=== PATIENT | female | born 1970 | race Caucasian/White ===

== ENCOUNTER → 2022-07-01 08:47 | Outpatient (CLI) | payer BC, SELFPAY ==
[2022-07-01 12:49] LABS: Hemoglobin 13.8 g/dL (12.0-16.0); Mean Corpuscular HGB Conc 34.5 % (30-36); Mean Corpuscular Hemoglobin 30.6 PG (26-34); Mean Corpuscular Volume 88.7 fL (80-100); Platelet Count 202 X10^3/uL (150-400); Red Blood Cell Count 4.51 X10^6/uL (4.0-5.2); Red Cell Distribution Width 12.4 % (11.6-14.8)
[2022-07-01 13:12] LABS: Hemoglobin A1C% w Est Avg Glu 5.3 % (4.0-6.0)
[2022-07-01 13:27] LABS: Alanine Aminotransferase 16 IU/L (<35); Albumin 4.2 g/dL (3.5-5.0); Albumin Globulin Ratio 1.5 (1.0-2.8); Alkaline Phosphatase 51 U/L (38-126); Aspartate Aminotransferase 19 IU/L (14-36); BUN Creatinine Ratio 15.6 (6-22); Blood Urea Nitrogen 14 mg/dL (7-17); Carbon Dioxide 29 mmol/L (22-32); Chloride 101 mmol/L (98-107); Cholesterol 178 mg/dL (140-199); Estimated Glomerular Filt Rate > 60 mL/min (>60); Globulin 2.8 g/dL (1.7-4.1); Glucose 74 mg/dL (70-100); HDL Cholesterol 61 mg/dL (40-60); HEMOLYSIS < 15 (0-50); LDL Cholesterol Calculated 98 mg/dL (<100); Potassium 4.4 mmol/L (3.4-5.1); Sodium 138 mmol/L (137-145); Triglycerides 93 mg/dL (35-150)
[2022-07-01 13:38] LABS: Free T4, Direct Thyroxine 1.05 ng/dL (0.78-2.19)
[2022-07-01 13:51] LABS: Thyroid Stimulating Hormone 1.47 uIU/mL (0.47-4.68)
[2022-07-01 17:15] LABS: Vitamin D 25 Hydroxy (D3) 84.4 ng/mL (30.0-100.0)
== END ==
PROVIDERS: PCP Family Medicine; Referring Provider Family Medicine; Visit Provider Family Medicine
DX: E55.9 Vitamin D deficiency, unspecified (principal); G89.29 Other chronic pain; M25.561 Pain in right knee; M25.572 Pain in left ankle and joints of left foot; R53.83 Other fatigue; R73.9 Hyperglycemia, unspecified; Z13.220 Encounter for screening for lipoid disorders; Z30.41 Encounter for surveillance of contraceptive pills; Z76.89 Persons encountering health services in other specified circumstances
CPT/HCPCS: 36415; 80053; 80061; 82306; 83036; 84439; 84443; 84481; 85027

== ENCOUNTER → 2022-08-10 11:43 | Outpatient (CLI) | payer BC, SELFPAY ==
--- NOTE | 2022-08-10 11:44 | DI.MRI.S_ITS ---
PROCEDURE: MR KNEE RT WO CON INDICATIONS: right knee pain TECHNIQUE: Noncontrast sagittal PD fast spin echo and T2 fast spin echo with fat saturation, sagittal 3-D FLASH with fat saturation; coronal T1 spin echo and PD fast spin echo with fat saturation, and axial PD fast spin echo with fat saturation through the knee. COMPARISON: None. FINDINGS: Image quality: Excellent. Menisci: The medial meniscus is intact. Complex tear involving anterior horn and body of lateral meniscus is noted extending to both superior and inferior articulating surfaces. The meniscal root ligaments appear intact. Cruciate ligaments: The anterior cruciate ligament is thickened near its femoral insertion. The posterior cruciate ligament is intact. Medial structures: The medial collateral ligament appears mildly thickened. The posterior oblique ligament, semimembranosus tendon insertions, oblique popliteal ligament, and meniscocapsular junction appear intact. Visualized portions of the pes anserinus tendons appear normal. No abnormal bursal fluid. Lateral structures: The lateral collateral ligament, long and short heads of the biceps femoris tendon appear thickened near their distal insertions. The popliteus tendon appears normal; the popliteofibular ligament appears intact. Iliotibial band appears normal. Anterior structures: The quadriceps and patellar tendons appear intact. Patellar alignment is normal. No femoral trochlear dysplasia or ventral trochlear prominence. No edema in the infrapatellar fat pad. Bones and cartilage: No bone marrow contusions or fractures. Mild tricompartmental osteoarthritis and low-grade chondromalacia is seen. Joint space: There is small knee joint fluid. No Borrego's cyst. Normal appearing synovial plicae are incidentally noted. IMPRESSION: 1. Complex tear involving anterior horn and body of lateral meniscus extending to both superior and inferior articulating surfaces. No focal medial meniscal tear. 2. Low-grade ACL sprain near its femoral insertion. No ACL rupture the PCL is intact. 3. Very mild MCL sprain. Low to moderate grade LCL sprain and tendinosis involving distal long and short heads of biceps femora is tendon. 4. Mild tricompartmental osteoarthritis and low-grade chondromalacia. No fracture or dislocation. Small amount of joint fluid, no gross loose bodies. Dictated by: Jorgito Dennis M.D. on 08/10/2022 at 14:54 Approved by: Jorgito Dennsi M.D. on 08/10/2022 at 14:57
== END ==
PROVIDERS: PCP Family Medicine; Referring Provider Family Medicine; Visit Provider Family Medicine
DX: S83.281A Other tear of lateral meniscus, current injury, right knee, initial encounter (principal); S83.511A Sprain of anterior cruciate ligament of right knee, initial encounter; S83.411A Sprain of medial collateral ligament of right knee, initial encounter; S83.421A Sprain of lateral collateral ligament of right knee, initial encounter; M17.11 Unilateral primary osteoarthritis, right knee; M94.261 Chondromalacia, right knee; M25.561 Pain in right knee; G89.29 Other chronic pain
CPT/HCPCS: 73721

== ENCOUNTER → 2022-12-04 12:33 | Outpatient (CLI) | payer BC, SELFPAY ==
--- NOTE | 2022-12-04 12:34 | DI.RAD.S_ITS ---
PROCEDURE: XR FOOT RT MIN 3V INDICATIONS: Base of great toe pain TECHNIQUE: 3 views of the foot were acquired. COMPARISON: None. FINDINGS: Bones: No fractures or dislocations. No suspicious bony lesions. Prominent plantar calcaneal spur. No significant great toe degenerative change. Soft tissues: No tibiotalar joint effusion. Achilles tendon appears normal. IMPRESSION: No evidence acute bony abnormality. Dictated by: Robles Lin M.D. on 12/04/2022 at 18:34 Approved by: Robels Lin M.D. on 12/04/2022 at 18:35
== END ==
PROVIDERS: PCP Family Medicine; Referring Provider Nurse Practitioner Family; Visit Provider Nurse Practitioner Family
DX: M79.671 Pain in right foot (principal)
CPT/HCPCS: 73630

== ENCOUNTER → 2023-02-15 10:53 | Outpatient (CLI) | payer BC, SELFPAY ==
--- NOTE | 2023-02-15 10:58 | DI.RAD.S_ITS ---
PROCEDURE: XR FOOT RT MIN 3V INDICATIONS: METARARSALGIA LEFT/HALLUX RIGHT TECHNIQUE: 3 views of the foot were acquired. COMPARISON: [facility], , XR FOOT RT MIN 3V, 12/04/2022, 12:43. FINDINGS: Bones: No fractures or dislocations. No suspicious bony lesions. Soft tissues: No tibiotalar joint effusion. Achilles tendon appears normal. IMPRESSION: No visualized acute fracture or dislocation. However, if clinical concern and/or pain persist, short interval imaging followup in 7-10 days is recommended, as occult injury cannot be definitively excluded. Dictated by: Estela Brar M.D. on 02/15/2023 at 17:05 Approved by: Estela Brar M.D. on 02/15/2023 at 17:05
--- NOTE | 2023-02-15 10:58 | DI.RAD.S_ITS ---
PROCEDURE: XR FOOT LT MIN 3V INDICATIONS: METARARSALGIA LEFT/HALLUX RIGHT TECHNIQUE: 3 views of the foot were acquired. COMPARISON: [facility], CR, XR FOOT RT MIN 3V, 12/04/2022, 12:43. FINDINGS: Bones: No fractures or dislocations. No suspicious bony lesions. Minimal scattered IP narrowing. Soft tissues: No tibiotalar joint effusion. Achilles tendon appears normal. IMPRESSION: No visualized acute fracture or dislocation. However, if clinical concern and/or pain persist, short interval imaging followup in 7-10 days is recommended, as occult injury cannot be definitively excluded. Dictated by: Estela Brar M.D. on 02/15/2023 at 17:05 Approved by: Estela Brar M.D. on 02/15/2023 at 17:06
[2023-02-15 13:25] LABS: BUN Creatinine Ratio 11.9 (6-22); Blood Urea Nitrogen 10 mg/dL (7-17); Calcium 9.3 mg/dL (8.4-10.2); Carbon Dioxide 27 mmol/L (22-32); Chloride 106 mmol/L (98-107); Estimated Glomerular Filt Rate > 60 mL/min (>60); Glucose 75 mg/dL (70-100); HEMOLYSIS < 15 (0-50); Sodium 139 mmol/L (137-145); Uric Acid 3.9 mg/dL (2.5-6.2)
[2023-02-17 08:52] LABS: Dehydroepiandrosterone Sulfate 65.1 ug/dL (41.2-243.7)
[2023-02-20 13:36] LABS: Estradiol 13.8 pg/mL (.); Estriol,Serum <0.1 ng/mL (.); Estrone,Serum 20 pg/mL (.)
[2023-02-26 07:12] LABS: Testosterone Free 0.28 ng/dL (0.10-0.85); Testosterone Total 39.5 ng/dL (.)
== END ==
PROVIDERS: PCP Family Medicine; Referring Provider Podiatrist Foot & Ankle Surgery; Visit Provider Podiatrist Foot & Ankle Surgery
DX: M77.42 Metatarsalgia, left foot (principal); M20.21 Hallux rigidus, right foot; M25.561 Pain in right knee; M25.571 Pain in right ankle and joints of right foot; M25.572 Pain in left ankle and joints of left foot; N95.1 Menopausal and female climacteric states; R73.9 Hyperglycemia, unspecified; G89.29 Other chronic pain; Z71.89 Other specified counseling
CPT/HCPCS: 36415; 73630; 80048; 82627; 82670; 82677; 82679; 83498; 84402; 84403; 84550

== ENCOUNTER → 2024-06-27 11:07 | Outpatient (CLI) | payer BC, SELFPAY ==
[2024-06-27 11:28] LABS: Add Manual Diff / Slide Review NO; Basophils Absolute Auto 100 /uL (0-100); Eosinophils Absolute Auto 100 /uL (0-450); Eosinophils Percent Auto 1.9 % (2-4); Hematocrit 42.5 % (36-46); Hemoglobin 14.4 g/dL (12.0-16.0); Lymphocytes Absolute Auto 1500 /uL (1100-4500); Lymphocytes Percent Auto 29.8 % (25-40); Mean Corpuscular HGB Conc 33.8 % (30-36); Mean Corpuscular Hemoglobin 30.1 PG (26-34); Mean Corpuscular Volume 89.2 fL (80-100); Monocytes Absolute Auto 400 /uL (0-900); Monocytes Percent Auto 7.9 % (3-14); Neutrophils Absolute Auto 3000 /uL (1500-7000); Neutrophils Percent Auto 59.4 % (50-75); Platelet Count 230 X10^3/uL (150-400); Red Blood Cell Count 4.77 X10^6/uL (4.0-5.2); Red Cell Distribution Width 13.2 % (11.6-14.8)
[2024-06-27 12:02] LABS: Alanine Aminotransferase 135 IU/L (<35); Albumin 4.4 g/dL (3.5-5.0); Albumin Globulin Ratio 1.7 (1.0-2.8); Alkaline Phosphatase 68 U/L (38-126); Aspartate Aminotransferase 63 IU/L (14-36); BUN Creatinine Ratio 12.6 (6-22); Bilirubin Total 0.9 mg/dL (0.2-1.3); Blood Urea Nitrogen 11 mg/dL (7-17); Calcium 9.7 mg/dL (8.4-10.2); Carbon Dioxide 28 mmol/L (22-32); Chloride 105 mmol/L (98-107); Cholesterol 238 mg/dL (140-199); Estimated Glomerular Filt Rate > 60 mL/min (>60); Globulin 2.6 g/dL (1.7-4.1); Glucose 98 mg/dL (70-100); HDL Cholesterol 68 mg/dL (40-60); HEMOLYSIS < 15 (0-50); LDL Cholesterol Calculated 146 mg/dL (<100); Potassium 4.5 mmol/L (3.4-5.1); Sodium 138 mmol/L (137-145); Triglycerides 118 mg/dL (35-150)
[2024-06-27 12:06] LABS: Follicle Stimulating Hormone 54.6 mIU/mL
[2024-06-27 12:35] LABS: Ferritin 251 ng/mL (11-264)
[2024-06-28 04:08] LABS: CRP, High Sensitivity 0.91 mg/L (0.00-3.00)
== END ==
PROVIDERS: PCP Family Medicine; Referring Provider Family Medicine; Visit Provider Family Medicine
DX: R73.9 Hyperglycemia, unspecified (principal); Z13.220 Encounter for screening for lipoid disorders; Z13.0 Encounter for screening for diseases of the blood and blood-forming organs and certain disorders involving the immune mechanism; N95.1 Menopausal and female climacteric states
CPT/HCPCS: 80053; 80061; 82728; 83001; 85025; 86140

== ENCOUNTER → 2024-09-13 08:09 | Outpatient (CLI) | payer BC, SELFPAY ==
--- NOTE | 2024-09-13 08:10 | DI.MG.S_ITS ---
MM screening mammo BI: 09/13/2024. BI-RADS: 1 CLINICAL: 54-year old female for bilateral screening mammogram. Tyrer-Cuzick lifetime risk of 11.7%. No personal or first-degree family history of breast cancer. Current reported family history of breast cancer: maternal grandmother. PRIOR EXAMS 10/10/2021, 11/21/2019, 02/16/2018, 02/10/2018. MAMMOGRAPHY TECHNIQUE: 2D and 3D (tomosynthesis) digital mammographic views obtained, with additional images as needed for full coverage. Current study was also evaluated with a Computer Aided Detection (CAD) system. DENSITY B. There are scattered areas of fibroglandular density. MAMMOGRAPHY FINDINGS Bilateral: No suspicious mass, asymmetry, microcalcification, or other abnormality seen. No significant change from comparison. IMPRESSION: * No evidence of malignancy. RECOMMENDATIONS Bilateral * Annual screening mammography. OVERALL ASSESSMENT CATEGORY BI-RADS-1: Negative. [employer] recommends annual screening mammography beginning at age 40 for women with average risk of breast cancer. ELECTRONICALLY SIGNED: Nina Quarles M.D. on 09/13/2024 at 09:52:33 AM PT Interpreting Station ID: [id number]
== END ==
PROVIDERS: PCP Family Medicine; Referring Provider Family Medicine; Visit Provider Family Medicine
DX: Z12.31 Encounter for screening mammogram for malignant neoplasm of breast (principal); Z80.3 Family history of malignant neoplasm of breast
CPT/HCPCS: 77063; 77067

== ENCOUNTER → 2025-02-14 10:15 | Outpatient (CLI) | payer BC, SELFPAY ==
[2025-02-14 12:31] LABS: Alanine Aminotransferase 31 IU/L (<35); Albumin 4.5 g/dL (3.5-5.0); Albumin Globulin Ratio 1.7 (1.0-2.8); Alkaline Phosphatase 93 U/L (38-126); Blood Urea Nitrogen 17 mg/dL (7-17); Calcium 9.4 mg/dL (8.4-10.2); Carbon Dioxide 24 mmol/L (22-32); Chloride 103 mmol/L (98-107); Cholesterol 218 mg/dL (140-199); Estimated Glomerular Filt Rate > 60 mL/min (>60); Globulin 2.7 g/dL (1.7-4.1); Glucose 98 mg/dL (70-99); HDL Cholesterol 75 mg/dL (40-60); HEMOLYSIS < 15 (0-50); Potassium 4.4 mmol/L (3.4-5.1); Sodium 137 mmol/L (137-145); Total Protein 7.2 g/dL (6.3-8.2); Triglycerides 95 mg/dL (35-150)
[2025-02-14 12:45] LABS: Follicle Stimulating Hormone 32.7 mIU/mL
[2025-02-15 07:41] LABS: CRP, High Sensitivity 2.24 mg/L (0.00-3.00)
[2025-03-02 17:41] LABS: Estradiol, Sensitive 63.8 pg/mL (.)
== END ==
PROVIDERS: PCP Family Medicine; Referring Provider Family Medicine; Visit Provider Family Medicine
DX: R10.2 Pelvic and perineal pain (principal); Z01.419 Encounter for gynecological examination (general) (routine) without abnormal findings; R73.9 Hyperglycemia, unspecified
CPT/HCPCS: 36415; 80053; 80061; 82670; 83001; 86140

== ENCOUNTER → 2025-05-15 13:06 | Outpatient (CLI) | payer BC, SELFPAY ==
--- NOTE | 2025-05-15 14:15 | DI.RAD.S_ITS ---
PROCEDURE: ORTHO-XR FOOT 3V WB LEFT COMPARISON: None. INDICATIONS: xray FINDINGS: Pes planus alignment. No acute fracture or dislocation. No suspicious osseous lesions. Plantar calcaneal enthesophyte. No significant soft tissue abnormalities IMPRESSION: No acute fracture or dislocation. Dictated by: Ruiz Hester M.D. on 05/15/2025 at 16:20 Approved by: Ruiz Hester M.D. on 05/15/2025 at 16:20
--- NOTE | 2025-05-15 14:15 | DI.RAD.S_ITS ---
PROCEDURE: ORTHO-XR FOOT 3V WB RIGHT INDICATIONS: xray TECHNIQUE: 3 weight-bearing views acquired of the foot. COMPARISON: None. FINDINGS: Bones: Pes planus alignment. No fractures or dislocations. No suspicious bony lesions. Plantar calcaneal enthesophyte peer Soft tissues: No tibiotalar joint effusion. No suspicious soft tissue calcifications. IMPRESSION: No acute bony abnormality. Dictated by: Ruiz Hester M.D. on 05/15/2025 at 16:21 Approved by: Ruiz Hester M.D. on 05/15/2025 at 16:21
== END ==
PROVIDERS: PCP Family Medicine; Referring Provider Podiatrist Foot & Ankle Surgery; Visit Provider Podiatrist Foot & Ankle Surgery
DX: M79.671 Pain in right foot (principal); M79.672 Pain in left foot; M77.32 Calcaneal spur, left foot; M77.31 Calcaneal spur, right foot
CPT/HCPCS: 73630